=== PATIENT | male | born 1945 | race Caucasian/White ===

== ENCOUNTER 2019-05-06 10:57 | Inpatient (IN) | payer MEDICAID, MEDICARE ==
[~2019-05-06] VITALS: Ht 167.6 cm; Wt 54.3 kg
--- NOTE | 2019-05-06 11:16 | NUR ---
PT WALKED BACK FROM LOBBY TO ROOM AT THIS TIME.
[2019-05-06 11:54] LABS: BASOPHILS # (AUTO) 0.02 x10^3/uL (0-0.1); BASOPHILS % (AUTO) 0 % (0-1); EOSINOPHILS # (AUTO) 0.14 x10^3/uL (0-0.4); EOSINOPHILS % (AUTO) 2 % (1-7); LYMPHOCYTES # (AUTO) 0.45 x10^3/uL (1-3.4); LYMPHOCYTES % (AUTO) 5 % (22-44); MD NO; MEAN CORPUSCULAR HEMOGLOBIN 28.5 pg (27.5-34.5); MEAN CORPUSCULAR HGB CONC 32.6 g/dL (33.2-36.2); MEAN CORPUSCULAR VOLUME 87.4 fL (81-97); MEAN PLATELET VOLUME 7.9 fL (7.4-10.4); MONOCYTES % (AUTO) 7 % (2-9); NEUTROPHILS % (AUTO) 87 % (42-75); PLATELET COUNT 251 x10^3/uL (130-400); RED BLOOD COUNT 4.98 x10^6/uL (4.38-5.82); RED CELL DISTRIBUTION WIDTH 16.9 % (9.4-14.8)
[2019-05-06] MEDS ORDERED: METO-93 PO (11:58)
[2019-05-06] MEDS ORDERED: AMLO10TA8 PO (11:59)
[2019-05-06] MEDS ORDERED: ASPI1TAB59 PO (12:00)
[2019-05-06] MEDS ORDERED: SIMV5TAB14 PO (12:01)
[2019-05-06] MEDS ORDERED: TAMS-11 PO (12:01)
[2019-05-06 12:02] LABS: ALANINE AMINOTRANSFERASE 44 U/L (12-78); ALBUMIN 3.2 g/dL (3.4-5.0); ANION GAP 6 mmol/L (5-15); CHLORIDE 103 mmol/L (98-107); CREATININE 0.86 mg/dL (0.7-1.3)
[2019-05-06 12:06] LABS: ALKALINE PHOSPHATASE 78 U/L (45-117); BILIRUBIN,TOTAL 0.3 mg/dL (0.2-1.0); TOTAL PROTEIN 6.7 g/dL (6.4-8.2); TROPONIN I < 0.015 ng/mL (0.000-0.045)
--- NOTE | 2019-05-06 12:55 | NUR ---
REPORT RECEIVED FROM ALAN LANDEROS. PT SEEN AND EXAMINED BY SHIVAM ANDRADE, PT REPORTS PROGRESSIVE COUGH AND SOB FOR MONTHS. PER SHIVAM ANDRADE, PT HAS SYMPTOMS CONSISTENT WITH CHF EXACERBATION AND IS NOT SUSPICIOUS FOR COVID19. PT ON ALL MONITORS, RESPS EVEN AND UNLABORED, NSR ON JANITORIAL ASSISTANT WITH NO ECTOPY. PT TO RECEIVE LASIX.
[2019-05-06] MEDS ORDERED: FUROSEMIDE 40 MG/4 ML ONE (13:00)
[2019-05-06] MEDS ORDERED: FUROSEMIDE 40 MG/4 ML IV ONE (13:00)
--- NOTE | 2019-05-06 14:27 | NUR ---
PT AMBULATED WITH RN CONTINUOUS PULSE OX READING, SPO2 86% ON ROOM AIR WITH AMBULATION. EDMD LUPE NOTIFIED. PT REATTACHED TO ALL MONITORS, URINAL EMPTIED, PT HAS VOIDED 700ML. PT IS NSR ON SCRUB TECH WITH NO ECTOPY. PT TO BE ADMITTED, PT AGREEABLE TO POC.
--- NOTE | 2019-05-06 15:11 | NUR ---
report given to ALAN Begum, pt to be admitted. awaiting admit orders and bed assignment at this [facility].
[2019-05-06] MEDS ORDERED: ONDANSETRON 2MG/ML, 2ML IVPush PRN (15:30)
[2019-05-06 16:10] LABS: TROPONIN I < 0.015 ng/mL (0.000-0.045)
--- NOTE | 2019-05-06 16:52 | NUR ---
Pt transfered from ED to floor on [facility].
[2019-05-06 17:13] VITALS: BP 156/88
[2019-05-06] MEDS: ACETAMINOPHEN 325 MG TABLET PO PRN (17:47)
[2019-05-06] MEDS: HEPARIN 5,000 UNITS/ML, 1ML SQ SCH (17:47)
[2019-05-06 19:02] VITALS: BP 140/71
[2019-05-06] MEDS: SIMVASTATIN 5 MG TABLET PO SCH (20:15)
[2019-05-06] MEDS: METOPROLOL SUCCINATE 50 MG TAB.ER.24H PO SCH (20:15)
[2019-05-06] MEDS: TAMSULOSIN 0.4 MG CAP.ER.24H PO SCH (20:16)
[2019-05-06] MEDS: FUROSEMIDE 20 MG/2 ML IV SCH (20:16)
[2019-05-06 22:00] LABS: TROPONIN I < 0.015 ng/mL (0.000-0.045)
[2019-05-07 00:38] VITALS: BP 148/70
[2019-05-07] MEDS: HEPARIN 5,000 UNITS/ML, 1ML SQ SCH ×3 (02:14→16:53)
[2019-05-07 05:28] LABS: BASOPHILS # (AUTO) 0.04 x10^3/uL (0-0.1); BASOPHILS % (AUTO) 1 % (0-1); EOSINOPHILS # (AUTO) 0.17 x10^3/uL (0-0.4); EOSINOPHILS % (AUTO) 3 % (1-7); LYMPHOCYTES # (AUTO) 0.37 x10^3/uL (1-3.4); LYMPHOCYTES % (AUTO) 6 % (22-44); MD NO; MEAN CORPUSCULAR HEMOGLOBIN 28.6 pg (27.5-34.5); MEAN CORPUSCULAR HGB CONC 32.7 g/dL (33.2-36.2); MEAN CORPUSCULAR VOLUME 87.3 fL (81-97); MEAN PLATELET VOLUME 7.7 fL (7.4-10.4); MONOCYTES # (AUTO) 0.63 x10^3/uL (0.2-0.8); MONOCYTES % (AUTO) 10 % (2-9); NEUTROPHILS # (AUTO) 4.92 x10^3/uL (1.8-6.8); NEUTROPHILS % (AUTO) 80 % (42-75); PLATELET COUNT 214 x10^3/uL (130-400); RED BLOOD COUNT 4.59 x10^6/uL (4.38-5.82); RED CELL DISTRIBUTION WIDTH 16.4 % (9.4-14.8)
[2019-05-07 05:36] LABS: ALBUMIN 2.9 g/dL (3.4-5.0); ANION GAP 4 mmol/L (5-15); CALCIUM 8.3 mg/dL (8.5-10.1); CHLORIDE 98 mmol/L (98-107)
[2019-05-07 05:40] LABS: ALANINE AMINOTRANSFERASE 34 U/L (12-78); ALKALINE PHOSPHATASE 67 U/L (45-117); BILIRUBIN,TOTAL 0.7 mg/dL (0.2-1.0); CREATININE 0.67 mg/dL (0.7-1.3)
[2019-05-07] MEDS: FUROSEMIDE 20 MG/2 ML IV SCH ×2 (08:03→16:53)
[2019-05-07 08:19] VITALS: BP 173/79
[2019-05-07 09:26] LABS: C-REACTIVE PROTEIN, QUANT 0.69 mg/dL (0.02-0.49)
[2019-05-07 09:34] LABS: FREE T4 (FREE THYROXINE) 1.01 ng/dL (0.76-1.46)
[2019-05-07 09:42] LABS: HCT (SEDRATE) 40.1 % (39.2-51.8)
[2019-05-07 13:46] VITALS: BP 126/82
[2019-05-07 19:05] VITALS: BP 138/74
[2019-05-07] MEDS: TAMSULOSIN 0.4 MG CAP.ER.24H PO SCH (21:45)
[2019-05-07] MEDS: SIMVASTATIN 5 MG TABLET PO SCH (21:46)
[2019-05-07] MEDS: METOPROLOL SUCCINATE 50 MG TAB.ER.24H PO SCH (21:46)
[2019-05-08] MEDS: HEPARIN 5,000 UNITS/ML, 1ML SQ SCH ×3 (01:59→17:41)
[2019-05-08 02:00] VITALS: BP 161/72
[2019-05-08 05:22] LABS: ALBUMIN 2.8 g/dL (3.4-5.0); ANION GAP 4 mmol/L (5-15); CALCIUM 8.4 mg/dL (8.5-10.1); CHLORIDE 99 mmol/L (98-107)
[2019-05-08 05:23] LABS: BASOPHILS # (AUTO) 0.03 x10^3/uL (0-0.1); BASOPHILS % (AUTO) 0 % (0-1); EOSINOPHILS % (AUTO) 3 % (1-7); LYMPHOCYTES # (AUTO) 0.48 x10^3/uL (1-3.4); LYMPHOCYTES % (AUTO) 8 % (22-44); MD NO; MEAN CORPUSCULAR HEMOGLOBIN 28.6 pg (27.5-34.5); MEAN CORPUSCULAR HGB CONC 32.8 g/dL (33.2-36.2); MEAN CORPUSCULAR VOLUME 87.2 fL (81-97); MEAN PLATELET VOLUME 8.2 fL (7.4-10.4); MONOCYTES # (AUTO) 0.75 x10^3/uL (0.2-0.8); MONOCYTES % (AUTO) 12 % (2-9); NEUTROPHILS # (AUTO) 4.91 x10^3/uL (1.8-6.8); NEUTROPHILS % (AUTO) 77 % (42-75); PLATELET COUNT 227 x10^3/uL (130-400); RED BLOOD COUNT 4.64 x10^6/uL (4.38-5.82); RED CELL DISTRIBUTION WIDTH 16.8 % (9.4-14.8)
[2019-05-08] MEDS: FUROSEMIDE 20 MG/2 ML IV SCH ×2 (07:43→16:41)
[2019-05-08] MEDS: LISINOPRIL 10 MG TABLET PO SCH (07:43)
[2019-05-08 08:32] VITALS: BP 103/49
[2019-05-08 13:32] VITALS: BP 131/71
[2019-05-08] MEDS: ACETAMINOPHEN 325 MG TABLET PO PRN (16:40)
[2019-05-08] MEDS: GUAIFENESIN ER 600 MG TABLET PO SCH (16:41)
[2019-05-08] MEDS ORDERED: POTASSIUM CHLORIDE 20 MEQ in SODIUM CHLORIDE 0.9% 250 ML IV ONE (17:30)
[2019-05-08 20:52] VITALS: BP 128/69
[2019-05-08] MEDS: SIMVASTATIN 5 MG TABLET PO SCH (21:03)
[2019-05-08] MEDS: TAMSULOSIN 0.4 MG CAP.ER.24H PO SCH (21:03)
[2019-05-08] MEDS: METOPROLOL SUCCINATE 50 MG TAB.ER.24H PO SCH (21:04)
[2019-05-09 01:58] VITALS: BP 124/70
[2019-05-09] MEDS: HEPARIN 5,000 UNITS/ML, 1ML SQ SCH ×3 (02:06→17:46)
[2019-05-09 08:41] VITALS: BP 138/73
[2019-05-09] MEDS: LISINOPRIL 10 MG TABLET PO SCH (09:02)
[2019-05-09] MEDS: ACETAMINOPHEN 325 MG TABLET PO PRN ×3 (09:02→20:17)
[2019-05-09] MEDS: FUROSEMIDE 20 MG/2 ML IV SCH ×2 (09:03→17:00)
[2019-05-09] MEDS: GUAIFENESIN ER 600 MG TABLET PO SCH ×2 (09:04→20:16)
[2019-05-09 15:20] VITALS: BP 113/59
[2019-05-09] MEDS ORDERED: MAGNESIUM SULFATE PMX 2GM/50ML 50 ML IV ONE (17:00)
[2019-05-09] MEDS ORDERED: MAGNESIUM SULFATE IV ONE (17:30)
[2019-05-09] MEDS ORDERED: POTASSIUM CHLORIDE IV ONE (17:30)
[2019-05-09] MEDS ORDERED: SODIUM CHLORIDE 0.9% IV ONE (17:30)
[2019-05-09 19:36] VITALS: BP 105/62
[2019-05-09] MEDS: SIMVASTATIN 5 MG TABLET PO SCH (20:16)
[2019-05-09] MEDS: METOPROLOL SUCCINATE 50 MG TAB.ER.24H PO SCH (20:17)
[2019-05-09] MEDS: TAMSULOSIN 0.4 MG CAP.ER.24H PO SCH (20:17)
[2019-05-10] MEDS: HEPARIN 5,000 UNITS/ML, 1ML SQ SCH ×3 (01:07→17:39)
[2019-05-10 01:10] VITALS: BP 126/69
[2019-05-10 04:59] LABS: BASOPHILS # (AUTO) 0.03 x10^3/uL (0-0.1); BASOPHILS % (AUTO) 1 % (0-1); EOSINOPHILS # (AUTO) 0.22 x10^3/uL (0-0.4); EOSINOPHILS % (AUTO) 5 % (1-7); LYMPHOCYTES # (AUTO) 0.45 x10^3/uL (1-3.4); LYMPHOCYTES % (AUTO) 9 % (22-44); MD NO; MEAN CORPUSCULAR HEMOGLOBIN 28.1 pg (27.5-34.5); MEAN CORPUSCULAR HGB CONC 31.6 g/dL (33.2-36.2); MONOCYTES # (AUTO) 0.71 x10^3/uL (0.2-0.8); MONOCYTES % (AUTO) 14 % (2-9); NEUTROPHILS # (AUTO) 3.55 x10^3/uL (1.8-6.8); NEUTROPHILS % (AUTO) 71 % (42-75); PLATELET COUNT 187 x10^3/uL (130-400); RED BLOOD COUNT 4.66 x10^6/uL (4.38-5.82); RED CELL DISTRIBUTION WIDTH 16.4 % (9.4-14.8)
[2019-05-10 05:11] LABS: CHLORIDE 98 mmol/L (98-107)
[2019-05-10 05:15] LABS: ALBUMIN 2.8 g/dL (3.4-5.0); ANION GAP 6 mmol/L (5-15); CALCIUM 8.4 mg/dL (8.5-10.1); CREATININE 0.49 mg/dL (0.7-1.3)
[2019-05-10 06:49] VITALS: BP 137/68
[2019-05-10] MEDS: FUROSEMIDE 20 MG/2 ML IV SCH ×2 (09:23→17:39)
[2019-05-10] MEDS: LISINOPRIL 10 MG TABLET PO SCH (09:23)
[2019-05-10] MEDS: GUAIFENESIN ER 600 MG TABLET PO SCH ×2 (09:23→20:41)
[2019-05-10] MEDS: ACETAMINOPHEN 325 MG TABLET PO PRN ×2 (09:31→17:53)
[2019-05-10 12:55] VITALS: BP 134/71
[2019-05-10] MEDS ORDERED: POTASSIUM CHLORIDE 20 MEQ TAB.ER.PRT PO SCH (17:00)
[2019-05-10 19:41] VITALS: BP 109/57
[2019-05-10] MEDS: SIMVASTATIN 5 MG TABLET PO SCH (20:41)
[2019-05-10] MEDS: METOPROLOL SUCCINATE 50 MG TAB.ER.24H PO SCH (20:41)
[2019-05-10] MEDS: TAMSULOSIN 0.4 MG CAP.ER.24H PO SCH (20:41)
[2019-05-11 00:45] VITALS: BP 134/71
[2019-05-11] MEDS: HEPARIN 5,000 UNITS/ML, 1ML SQ SCH ×3 (02:12→17:43)
[2019-05-11 06:16] LABS: CHLORIDE 96 mmol/L (98-107)
[2019-05-11 06:22] LABS: ALANINE AMINOTRANSFERASE 30 U/L (12-78); ALBUMIN 2.9 g/dL (3.4-5.0); ALKALINE PHOSPHATASE 52 U/L (45-117); ANION GAP 3 mmol/L (5-15); BILIRUBIN,TOTAL 0.6 mg/dL (0.2-1.0); CALCIUM 8.6 mg/dL (8.5-10.1); CREATININE 0.53 mg/dL (0.7-1.3)
[2019-05-11 07:05] VITALS: BP 131/64
[2019-05-11] MEDS: POTASSIUM CHLORIDE 20 MEQ TAB.ER.PRT PO SCH ×2 (09:00→09:03)
[2019-05-11] MEDS: LISINOPRIL 10 MG TABLET PO SCH (09:03)
[2019-05-11] MEDS: GUAIFENESIN ER 600 MG TABLET PO SCH ×2 (09:03→19:49)
[2019-05-11] MEDS: ACETAMINOPHEN 325 MG TABLET PO PRN ×2 (09:11→17:52)
--- NOTE | 2019-05-11 11:32 | NUR ---
Rec return to previous living situation. Rec regular/thin liquid diet and GI consult if concerns persist. Addendum: 05/11/19 at 1133 by Angie GATES Amended: Links added.
[2019-05-11 14:11] VITALS: BP 121/67
[2019-05-11] MEDS: FUROSEMIDE 20 MG TABLET PO SCH (17:43)
[2019-05-11 19:40] VITALS: BP 146/75
[2019-05-11] MEDS: SIMVASTATIN 5 MG TABLET PO SCH (19:49)
[2019-05-11] MEDS: TAMSULOSIN 0.4 MG CAP.ER.24H PO SCH (19:49)
[2019-05-11] MEDS: METOPROLOL SUCCINATE 50 MG TAB.ER.24H PO SCH (19:50)
[2019-05-12 02:05] VITALS: BP 132/75
[2019-05-12] MEDS: HEPARIN 5,000 UNITS/ML, 1ML SQ SCH ×2 (02:07→09:49)
[2019-05-12 05:17] LABS: ALBUMIN 2.6 g/dL (3.4-5.0); ANION GAP 2 mmol/L (5-15); CALCIUM 8.5 mg/dL (8.5-10.1); CHLORIDE 96 mmol/L (98-107)
[2019-05-12 05:20] LABS: ALANINE AMINOTRANSFERASE 31 U/L (12-78); ALKALINE PHOSPHATASE 52 U/L (45-117); BILIRUBIN,TOTAL 0.4 mg/dL (0.2-1.0); CREATININE 0.65 mg/dL (0.7-1.3); TOTAL PROTEIN 5.7 g/dL (6.4-8.2)
[2019-05-12] MEDS: LISINOPRIL 10 MG TABLET PO SCH (08:38)
[2019-05-12] MEDS: FUROSEMIDE 20 MG TABLET PO SCH ×2 (08:38→17:39)
[2019-05-12] MEDS: POTASSIUM CHLORIDE 10 MEQ TABLET.ER PO SCH (08:38)
[2019-05-12] MEDS: GUAIFENESIN ER 600 MG TABLET PO SCH ×2 (08:38→20:54)
[2019-05-12 08:43] VITALS: BP 133/64
[2019-05-12] MEDS: ACETAMINOPHEN 325 MG TABLET PO PRN ×2 (09:48→20:54)
[2019-05-12] MEDS ORDERED: ENOXAPARIN 40 MG/0.4 ML SQ SCH (13:00)
[2019-05-12 13:12] VITALS: BP 139/75
[2019-05-12 15:08] VITALS: BP 158/73
[2019-05-12] MEDS: ENOXAPARIN 40 MG/0.4 ML SQ SCH (17:39)
[2019-05-12 19:50] VITALS: BP 138/67
[2019-05-12] MEDS: TAMSULOSIN 0.4 MG CAP.ER.24H PO SCH (20:54)
[2019-05-12] MEDS: SIMVASTATIN 5 MG TABLET PO SCH (20:55)
[2019-05-12] MEDS: METOPROLOL SUCCINATE 50 MG TAB.ER.24H PO SCH (20:55)
[2019-05-13 02:39] VITALS: BP 106/55
[2019-05-13 07:11] VITALS: BP 145/71
[2019-05-13] MEDS: FUROSEMIDE 20 MG TABLET PO SCH ×2 (07:52→17:25)
[2019-05-13] MEDS: POTASSIUM CHLORIDE 10 MEQ TABLET.ER PO SCH (07:52)
[2019-05-13] MEDS: GUAIFENESIN ER 600 MG TABLET PO SCH ×2 (07:52→20:45)
[2019-05-13] MEDS: LISINOPRIL 10 MG TABLET PO SCH (07:52)
[2019-05-13] MEDS: ACETAMINOPHEN 325 MG TABLET PO PRN ×2 (11:06→20:44)
[2019-05-13 12:50] VITALS: BP 168/71
[2019-05-13] MEDS: ENOXAPARIN 40 MG/0.4 ML SQ SCH (17:25)
[2019-05-13 19:05] VITALS: BP 152/66
[2019-05-13] MEDS: SIMVASTATIN 5 MG TABLET PO SCH (20:45)
[2019-05-13] MEDS: TAMSULOSIN 0.4 MG CAP.ER.24H PO SCH (20:45)
[2019-05-13] MEDS: METOPROLOL SUCCINATE 50 MG TAB.ER.24H PO SCH (20:45)
[2019-05-14 02:28] VITALS: BP 122/72
[2019-05-14 06:05] LABS: ANION GAP 3 mmol/L (5-15); CALCIUM 8.7 mg/dL (8.5-10.1); CHLORIDE 93 mmol/L (98-107)
[2019-05-14 06:09] LABS: ALANINE AMINOTRANSFERASE 47 U/L (12-78); ALKALINE PHOSPHATASE 51 U/L (45-117); BILIRUBIN,TOTAL 0.4 mg/dL (0.2-1.0); CREATININE 0.59 mg/dL (0.7-1.3); TOTAL PROTEIN 6.2 g/dL (6.4-8.2)
[2019-05-14 06:52] VITALS: BP 123/64
[2019-05-14] MEDS: POTASSIUM CHLORIDE 10 MEQ TABLET.ER PO SCH ×2 (09:00→10:05)
[2019-05-14] MEDS: FUROSEMIDE 20 MG TABLET PO SCH ×2 (09:00→10:05)
[2019-05-14] MEDS: LISINOPRIL 10 MG TABLET PO SCH (10:05)
[2019-05-14] MEDS: GUAIFENESIN ER 600 MG TABLET PO SCH ×2 (10:05→20:41)
[2019-05-14] MEDS: ACETAMINOPHEN 325 MG TABLET PO PRN ×3 (10:08→20:39)
[2019-05-14 13:47] VITALS: BP 80/41
[2019-05-14 14:02] VITALS: BP 94/55
[2019-05-14] MEDS: ENOXAPARIN 40 MG/0.4 ML SQ SCH (18:18)
[2019-05-14 19:14] VITALS: BP 126/67
[2019-05-14] MEDS: TAMSULOSIN 0.4 MG CAP.ER.24H PO SCH (20:41)
[2019-05-14] MEDS: METOPROLOL SUCCINATE 50 MG TAB.ER.24H PO SCH (20:41)
[2019-05-14] MEDS: SIMVASTATIN 10 MG TABLET PO SCH (20:43)
[2019-05-14] MEDS: OMEPRAZOLE 20 MG CAPSULE.DR PO SCH (20:56)
[2019-05-14] MEDS ORDERED: CALCIUM CARBONATE 500 MG TAB.CHEW PO PRN (21:00)
[2019-05-15 01:06] VITALS: BP 128/70
[2019-05-15] MEDS: ACETAMINOPHEN 325 MG TABLET PO PRN ×2 (06:08→19:32)
[2019-05-15 06:54] LABS: CHLORIDE 96 mmol/L (98-107)
[2019-05-15 06:57] VITALS: BP 154/68
[2019-05-15 07:03] LABS: ALANINE AMINOTRANSFERASE 50 U/L (12-78); ALBUMIN 3.2 g/dL (3.4-5.0); ALKALINE PHOSPHATASE 52 U/L (45-117); ANION GAP 4 mmol/L (5-15); BILIRUBIN,TOTAL 0.4 mg/dL (0.2-1.0); CREATININE 0.61 mg/dL (0.7-1.3); TOTAL PROTEIN 6.5 g/dL (6.4-8.2)
[2019-05-15] MEDS: FUROSEMIDE 20 MG TABLET PO SCH (09:25)
[2019-05-15] MEDS: GUAIFENESIN ER 600 MG TABLET PO SCH ×2 (09:25→19:32)
[2019-05-15] MEDS: LISINOPRIL 10 MG TABLET PO SCH (09:25)
[2019-05-15 13:42] VITALS: BP 131/69
[2019-05-15] MEDS: ENOXAPARIN 40 MG/0.4 ML SQ SCH (18:02)
[2019-05-15 18:30] VITALS: BP 111/58
[2019-05-15] MEDS: SIMVASTATIN 10 MG TABLET PO SCH (19:33)
[2019-05-15] MEDS: TAMSULOSIN 0.4 MG CAP.ER.24H PO SCH (19:33)
[2019-05-15] MEDS: METOPROLOL SUCCINATE 50 MG TAB.ER.24H PO SCH (19:33)
[2019-05-15] MEDS: OMEPRAZOLE 20 MG CAPSULE.DR PO SCH (19:33)
[2019-05-16 00:33] VITALS: BP 172/66
[2019-05-16 01:32] VITALS: BP 136/70
[2019-05-16 07:29] VITALS: BP 174/75
[2019-05-16] MEDS: POTASSIUM CHLORIDE 10 MEQ TABLET.ER PO SCH (08:12)
[2019-05-16] MEDS: GUAIFENESIN ER 600 MG TABLET PO SCH ×2 (08:12→19:44)
[2019-05-16] MEDS: ACETAMINOPHEN 325 MG TABLET PO PRN ×2 (08:12→19:42)
[2019-05-16] MEDS: LISINOPRIL 10 MG TABLET PO SCH ×3 (08:12→19:43)
[2019-05-16] MEDS: FUROSEMIDE 20 MG TABLET PO SCH (10:39)
[2019-05-16 13:00] VITALS: BP 145/73
[2019-05-16] MEDS: ENOXAPARIN 40 MG/0.4 ML SQ SCH (16:53)
[2019-05-16] MEDS: SIMVASTATIN 10 MG TABLET PO SCH (19:43)
[2019-05-16] MEDS: TAMSULOSIN 0.4 MG CAP.ER.24H PO SCH (19:43)
[2019-05-16] MEDS: OMEPRAZOLE 20 MG CAPSULE.DR PO SCH (19:43)
[2019-05-16] MEDS: METOPROLOL SUCCINATE 50 MG TAB.ER.24H PO SCH (19:44)
[2019-05-16 20:46] VITALS: BP 132/69
[2019-05-17 00:08] VITALS: BP 121/74
[2019-05-17 07:16] VITALS: BP 94/56
[2019-05-17 09:38] VITALS: BP 93/48
[2019-05-17] MEDS: GUAIFENESIN ER 600 MG TABLET PO SCH ×2 (09:40→20:18)
[2019-05-17] MEDS: LISINOPRIL 10 MG TABLET PO SCH ×2 (09:40→20:19)
[2019-05-17] MEDS: FUROSEMIDE 20 MG TABLET PO SCH (09:40)
[2019-05-17] MEDS: ACETAMINOPHEN 325 MG TABLET PO PRN ×2 (09:42→19:32)
[2019-05-17 12:23] VITALS: BP 124/64
[2019-05-17 19:27] VITALS: BP 150/72
[2019-05-17] MEDS: OMEPRAZOLE 20 MG CAPSULE.DR PO SCH (20:18)
[2019-05-17] MEDS: TAMSULOSIN 0.4 MG CAP.ER.24H PO SCH (20:18)
[2019-05-17] MEDS: SIMVASTATIN 10 MG TABLET PO SCH (20:18)
[2019-05-17] MEDS: ENOXAPARIN 40 MG/0.4 ML SQ SCH (20:19)
[2019-05-17] MEDS: METOPROLOL SUCCINATE 50 MG TAB.ER.24H PO SCH (20:19)
[2019-05-18 01:47] VITALS: BP 152/75
[2019-05-18 06:33] LABS: ANION GAP 8 mmol/L (5-15); CALCIUM 8.8 mg/dL (8.5-10.1); CHLORIDE 94 mmol/L (98-107)
[2019-05-18 06:34] LABS: CREATININE 0.62 mg/dL (0.7-1.3)
[2019-05-18 07:02] VITALS: BP 117/66
[2019-05-18] MEDS: POTASSIUM CHLORIDE 10 MEQ TABLET.ER PO SCH (08:27)
[2019-05-18] MEDS: GUAIFENESIN ER 600 MG TABLET PO SCH ×2 (08:27→20:05)
[2019-05-18] MEDS: LISINOPRIL 10 MG TABLET PO SCH ×2 (08:27→20:07)
[2019-05-18] MEDS: FUROSEMIDE 20 MG TABLET PO SCH (08:27)
[2019-05-18] MEDS: ACETAMINOPHEN 325 MG TABLET PO PRN ×2 (08:36→20:07)
[2019-05-18 12:12] VITALS: BP 145/68
[2019-05-18 18:59] VITALS: BP 130/61
[2019-05-18 19:58] VITALS: BP 138/73
[2019-05-18] MEDS: METOPROLOL SUCCINATE 50 MG TAB.ER.24H PO SCH (20:05)
[2019-05-18] MEDS: OMEPRAZOLE 20 MG CAPSULE.DR PO SCH (20:05)
[2019-05-18] MEDS: TAMSULOSIN 0.4 MG CAP.ER.24H PO SCH (20:05)
[2019-05-18] MEDS: ENOXAPARIN 40 MG/0.4 ML SQ SCH (20:05)
[2019-05-18] MEDS: SIMVASTATIN 10 MG TABLET PO SCH (20:06)
[2019-05-19 00:30] VITALS: BP 137/61
[2019-05-19 07:24] VITALS: BP 110/60
[2019-05-19] MEDS: LISINOPRIL 10 MG TABLET PO SCH ×2 (09:34→20:48)
[2019-05-19] MEDS: GUAIFENESIN ER 600 MG TABLET PO SCH ×2 (09:34→20:49)
[2019-05-19] MEDS: FUROSEMIDE 20 MG TABLET PO SCH (09:35)
[2019-05-19] MEDS: ACETAMINOPHEN 325 MG TABLET PO PRN ×2 (09:38→20:53)
[2019-05-19 14:38] VITALS: BP 95/53
[2019-05-19 19:07] VITALS: BP 146/72
[2019-05-19] MEDS: ENOXAPARIN 40 MG/0.4 ML SQ SCH (20:48)
[2019-05-19] MEDS: OMEPRAZOLE 20 MG CAPSULE.DR PO SCH (20:48)
[2019-05-19] MEDS: METOPROLOL SUCCINATE 50 MG TAB.ER.24H PO SCH (20:48)
[2019-05-19] MEDS: SIMVASTATIN 10 MG TABLET PO SCH (20:48)
[2019-05-19] MEDS: TAMSULOSIN 0.4 MG CAP.ER.24H PO SCH (20:48)
[2019-05-20 01:56] VITALS: BP 120/64
[2019-05-20 08:10] VITALS: BP 98/60
[2019-05-20] MEDS: LISINOPRIL 20 MG TABLET PO SCH ×2 (09:00→09:25)
[2019-05-20] MEDS: FUROSEMIDE 20 MG TABLET PO SCH (09:24)
[2019-05-20] MEDS: POTASSIUM CHLORIDE 10 MEQ TABLET.ER PO SCH (09:25)
[2019-05-20] MEDS: GUAIFENESIN 200 MG TABLET PO SCH ×3 (11:11→20:50)
[2019-05-20] MEDS: ACETAMINOPHEN 325 MG TABLET PO PRN ×2 (11:12→19:09)
[2019-05-20 12:54] VITALS: BP 131/69
[2019-05-20 19:57] VITALS: BP 148/74
[2019-05-20] MEDS: METOPROLOL SUCCINATE 50 MG TAB.ER.24H PO SCH (20:50)
[2019-05-20] MEDS: TAMSULOSIN 0.4 MG CAP.ER.24H PO SCH (20:51)
[2019-05-20] MEDS: ENOXAPARIN 40 MG/0.4 ML SQ SCH (20:51)
[2019-05-20] MEDS: OMEPRAZOLE 20 MG CAPSULE.DR PO SCH (20:51)
[2019-05-20] MEDS: SIMVASTATIN 10 MG TABLET PO SCH (20:51)
[2019-05-21 00:06] VITALS: BP 155/70
[2019-05-21] MEDS: ACETAMINOPHEN 325 MG TABLET PO PRN ×2 (06:52→20:28)
[2019-05-21] MEDS: GUAIFENESIN 200 MG TABLET PO SCH ×4 (06:52→20:27)
[2019-05-21 07:50] VITALS: BP 127/71
[2019-05-21] MEDS: LISINOPRIL 20 MG TABLET PO SCH (08:30)
[2019-05-21] MEDS: FUROSEMIDE 20 MG TABLET PO SCH (08:30)
[2019-05-21 13:08] VITALS: BP 90/47
[2019-05-21 13:23] VITALS: BP 95/55
[2019-05-21 19:59] VITALS: BP 145/75
[2019-05-21 20:26] VITALS: BP 156/74
[2019-05-21] MEDS: TAMSULOSIN 0.4 MG CAP.ER.24H PO SCH (20:27)
[2019-05-21] MEDS: OMEPRAZOLE 20 MG CAPSULE.DR PO SCH (20:27)
[2019-05-21] MEDS: METOPROLOL SUCCINATE 50 MG TAB.ER.24H PO SCH (20:27)
[2019-05-21] MEDS: SIMVASTATIN 10 MG TABLET PO SCH (20:28)
[2019-05-21] MEDS: ENOXAPARIN 40 MG/0.4 ML SQ SCH (20:28)
[2019-05-22] VITALS (7 sets, daily range): BP systolic 103–177; BP diastolic 59–82
[2019-05-22] MEDS: GUAIFENESIN 200 MG TABLET PO SCH ×4 (06:02→20:04)
[2019-05-22] MEDS: FUROSEMIDE 20 MG TABLET PO SCH (08:25)
[2019-05-22] MEDS: ACETAMINOPHEN 325 MG TABLET PO PRN ×2 (08:25→20:04)
[2019-05-22] MEDS: LISINOPRIL 20 MG TABLET PO SCH (08:25)
[2019-05-22] MEDS: POTASSIUM CHLORIDE 10 MEQ TABLET.ER PO SCH (08:25)
[2019-05-22] MEDS: TAMSULOSIN 0.4 MG CAP.ER.24H PO SCH (20:04)
[2019-05-22] MEDS: OMEPRAZOLE 20 MG CAPSULE.DR PO SCH (20:04)
[2019-05-22] MEDS: ENOXAPARIN 40 MG/0.4 ML SQ SCH ×2 (20:05→20:11)
[2019-05-22] MEDS: SIMVASTATIN 10 MG TABLET PO SCH (20:05)
[2019-05-22] MEDS: METOPROLOL SUCCINATE 50 MG TAB.ER.24H PO SCH (20:10)
[2019-05-23 00:25] VITALS: BP 158/70
[2019-05-23 05:52] LABS: ANION GAP 6 mmol/L (5-15); CALCIUM 8.7 mg/dL (8.5-10.1); CHLORIDE 97 mmol/L (98-107); CREATININE 0.57 mg/dL (0.7-1.3)
[2019-05-23] MEDS: GUAIFENESIN 200 MG TABLET PO SCH ×4 (06:04→20:46)
[2019-05-23] MEDS: ACETAMINOPHEN 325 MG TABLET PO PRN ×2 (06:07→19:22)
[2019-05-23 06:58] VITALS: BP 112/66
[2019-05-23] MEDS: LISINOPRIL 20 MG TABLET PO SCH (08:30)
[2019-05-23] MEDS: FUROSEMIDE 20 MG TABLET PO SCH (08:31)
[2019-05-23 13:43] VITALS: BP 132/69
[2019-05-23 20:00] VITALS: BP_SYST 150; BP_SYST 164; BP_DIAS 74; BP_DIAS 76
[2019-05-23] MEDS: OMEPRAZOLE 20 MG CAPSULE.DR PO SCH (20:46)
[2019-05-23] MEDS: ENOXAPARIN 40 MG/0.4 ML SQ SCH (20:46)
[2019-05-23] MEDS: METOPROLOL SUCCINATE 50 MG TAB.ER.24H PO SCH (20:46)
[2019-05-23] MEDS: TAMSULOSIN 0.4 MG CAP.ER.24H PO SCH (20:46)
[2019-05-23] MEDS: SIMVASTATIN 10 MG TABLET PO SCH (20:47)
[2019-05-24 01:16] VITALS: BP 145/69
[2019-05-24] MEDS: ACETAMINOPHEN 325 MG TABLET PO PRN ×4 (01:26→20:10)
[2019-05-24] MEDS: GUAIFENESIN 200 MG TABLET PO SCH ×4 (05:47→20:09)
[2019-05-24] MEDS: FUROSEMIDE 20 MG TABLET PO SCH (07:41)
[2019-05-24] MEDS: LISINOPRIL 20 MG TABLET PO SCH (07:41)
[2019-05-24 08:14] VITALS: BP 178/75
[2019-05-24] MEDS: AMLODIPINE 10 MG TAB PO SCH (10:01)
[2019-05-24 15:18] VITALS: BP 161/68
[2019-05-24] MEDS: TAMSULOSIN 0.4 MG CAP.ER.24H PO SCH (20:09)
[2019-05-24] MEDS: ENOXAPARIN 40 MG/0.4 ML SQ SCH (20:09)
[2019-05-24] MEDS: OMEPRAZOLE 20 MG CAPSULE.DR PO SCH (20:09)
[2019-05-24] MEDS: METOPROLOL SUCCINATE 50 MG TAB.ER.24H PO SCH (20:09)
[2019-05-24] MEDS: SIMVASTATIN 10 MG TABLET PO SCH (20:09)
[2019-05-24 20:49] VITALS: BP 153/78
[2019-05-25 01:44] VITALS: BP 136/78
[2019-05-25] MEDS: GUAIFENESIN 200 MG TABLET PO SCH ×4 (05:56→20:03)
[2019-05-25] MEDS: ACETAMINOPHEN 325 MG TABLET PO PRN ×3 (05:56→18:03)
[2019-05-25 06:55] VITALS: BP 108/61
[2019-05-25] MEDS: FUROSEMIDE 20 MG TABLET PO SCH (08:46)
[2019-05-25] MEDS: LISINOPRIL 20 MG TABLET PO SCH (08:46)
[2019-05-25] MEDS: AMLODIPINE 10 MG TAB PO SCH (08:47)
[2019-05-25 13:53] VITALS: BP 94/50
[2019-05-25 19:58] VITALS: BP 130/68
[2019-05-25] MEDS: OMEPRAZOLE 20 MG CAPSULE.DR PO SCH (20:03)
[2019-05-25] MEDS: ENOXAPARIN 40 MG/0.4 ML SQ SCH (20:04)
[2019-05-25] MEDS: METOPROLOL SUCCINATE 50 MG TAB.ER.24H PO SCH (20:04)
[2019-05-25] MEDS: TAMSULOSIN 0.4 MG CAP.ER.24H PO SCH (20:04)
[2019-05-25] MEDS: SIMVASTATIN 10 MG TABLET PO SCH (20:04)
[2019-05-26 01:00] VITALS: BP 123/66
[2019-05-26] MEDS: ACETAMINOPHEN 325 MG TABLET PO PRN ×3 (06:08→18:23)
[2019-05-26] MEDS: GUAIFENESIN 200 MG TABLET PO SCH ×4 (06:08→20:15)
[2019-05-26 07:00] VITALS: BP 91/53
[2019-05-26 09:45] VITALS: BP 118/70
[2019-05-26] MEDS: FUROSEMIDE 20 MG TABLET PO SCH (09:48)
[2019-05-26] MEDS: LISINOPRIL 20 MG TABLET PO SCH (09:50)
[2019-05-26] MEDS: AMLODIPINE 10 MG TAB PO SCH (09:50)
[2019-05-26 12:15] VITALS: BP 121/67
[2019-05-26 19:40] VITALS: BP 111/62
[2019-05-26] MEDS: METOPROLOL SUCCINATE 50 MG TAB.ER.24H PO SCH (20:15)
[2019-05-26] MEDS: OMEPRAZOLE 20 MG CAPSULE.DR PO SCH (20:15)
[2019-05-26] MEDS: SIMVASTATIN 10 MG TABLET PO SCH (20:16)
[2019-05-26] MEDS: ENOXAPARIN 40 MG/0.4 ML SQ SCH (20:16)
[2019-05-26] MEDS: TAMSULOSIN 0.4 MG CAP.ER.24H PO SCH (20:16)
[2019-05-27 01:30] VITALS: BP 129/68
[2019-05-27] MEDS: GUAIFENESIN 200 MG TABLET PO SCH ×4 (06:07→20:46)
[2019-05-27] MEDS: ACETAMINOPHEN 325 MG TABLET PO PRN ×2 (06:08→20:46)
[2019-05-27 07:31] VITALS: BP 128/67
[2019-05-27] MEDS: FUROSEMIDE 20 MG TABLET PO SCH (09:17)
[2019-05-27] MEDS: AMLODIPINE 10 MG TAB PO SCH (09:17)
[2019-05-27] MEDS: LISINOPRIL 20 MG TABLET PO SCH (09:18)
[2019-05-27 15:43] VITALS: BP 115/57
[2019-05-27 18:54] VITALS: BP 116/67
[2019-05-27] MEDS: ENOXAPARIN 40 MG/0.4 ML SQ SCH (20:46)
[2019-05-27] MEDS: SIMVASTATIN 10 MG TABLET PO SCH (20:46)
[2019-05-27] MEDS: TAMSULOSIN 0.4 MG CAP.ER.24H PO SCH (20:46)
[2019-05-27] MEDS: OMEPRAZOLE 20 MG CAPSULE.DR PO SCH (20:47)
[2019-05-27] MEDS: METOPROLOL SUCCINATE 50 MG TAB.ER.24H PO SCH (20:47)
[2019-05-28 01:26] VITALS: BP 98/60
[2019-05-28 05:23] LABS: CREATININE 0.61 mg/dL (0.7-1.3)
[2019-05-28] MEDS: GUAIFENESIN 200 MG TABLET PO SCH ×4 (05:39→22:09)
[2019-05-28] MEDS: ACETAMINOPHEN 325 MG TABLET PO PRN ×2 (05:42→18:42)
[2019-05-28 08:40] VITALS: BP 106/62
[2019-05-28] MEDS: FUROSEMIDE 20 MG TABLET PO SCH (09:18)
[2019-05-28] MEDS: AMLODIPINE 10 MG TAB PO SCH (09:18)
[2019-05-28] MEDS: LISINOPRIL 20 MG TABLET PO SCH (09:19)
[2019-05-28 14:26] VITALS: BP 100/62
[2019-05-28 18:28] VITALS: BP 111/64
[2019-05-28] MEDS: TAMSULOSIN 0.4 MG CAP.ER.24H PO SCH (22:09)
[2019-05-28] MEDS: OMEPRAZOLE 20 MG CAPSULE.DR PO SCH (22:09)
[2019-05-28] MEDS: ENOXAPARIN 40 MG/0.4 ML SQ SCH (22:09)
[2019-05-28] MEDS: METOPROLOL SUCCINATE 50 MG TAB.ER.24H PO SCH (22:09)
[2019-05-28] MEDS: SIMVASTATIN 10 MG TABLET PO SCH (22:09)
[2019-05-29 00:31] VITALS: BP 105/63
[2019-05-29] MEDS: GUAIFENESIN 200 MG TABLET PO SCH ×4 (05:36→20:28)
[2019-05-29 07:01] VITALS: BP 139/65
[2019-05-29] MEDS: LISINOPRIL 20 MG TABLET PO SCH (08:10)
[2019-05-29] MEDS: FUROSEMIDE 20 MG TABLET PO SCH (08:10)
[2019-05-29] MEDS: AMLODIPINE 10 MG TAB PO SCH (08:12)
[2019-05-29] MEDS: ACETAMINOPHEN 325 MG TABLET PO PRN ×2 (08:14→16:42)
[2019-05-29 13:38] VITALS: BP 113/64
[2019-05-29 14:31] VITALS: BP 152/68
[2019-05-29 19:33] VITALS: BP 121/62
[2019-05-29] MEDS: OMEPRAZOLE 20 MG CAPSULE.DR PO SCH (20:28)
[2019-05-29] MEDS: METOPROLOL SUCCINATE 50 MG TAB.ER.24H PO SCH (20:28)
[2019-05-29] MEDS: SIMVASTATIN 10 MG TABLET PO SCH (20:29)
[2019-05-29] MEDS: TAMSULOSIN 0.4 MG CAP.ER.24H PO SCH (20:29)
[2019-05-29] MEDS: ENOXAPARIN 40 MG/0.4 ML SQ SCH (20:29)
[2019-05-30 00:49] VITALS: BP 153/71
[2019-05-30] MEDS: GUAIFENESIN 200 MG TABLET PO SCH ×4 (05:23→20:06)
[2019-05-30 07:14] VITALS: BP 122/63
[2019-05-30] MEDS: LISINOPRIL 20 MG TABLET PO SCH (08:05)
[2019-05-30] MEDS: FUROSEMIDE 20 MG TABLET PO SCH (08:05)
[2019-05-30] MEDS: ACETAMINOPHEN 325 MG TABLET PO PRN ×2 (08:05→20:05)
[2019-05-30] MEDS: AMLODIPINE 2.5 MG TABLET PO SCH (08:42)
[2019-05-30 12:59] VITALS: BP 132/69
[2019-05-30 18:48] VITALS: BP 138/69
[2019-05-30] MEDS: METOPROLOL SUCCINATE 50 MG TAB.ER.24H PO SCH (20:06)
[2019-05-30] MEDS: TAMSULOSIN 0.4 MG CAP.ER.24H PO SCH (20:06)
[2019-05-30] MEDS: OMEPRAZOLE 20 MG CAPSULE.DR PO SCH (20:06)
[2019-05-30] MEDS: SIMVASTATIN 10 MG TABLET PO SCH (20:06)
[2019-05-30] MEDS: ENOXAPARIN 40 MG/0.4 ML SQ SCH (20:06)
[2019-05-31 01:00] VITALS: BP 128/63
[2019-05-31] MEDS: GUAIFENESIN 200 MG TABLET PO SCH ×4 (06:32→20:42)
[2019-05-31 06:46] VITALS: BP 107/60
[2019-05-31] MEDS: ACETAMINOPHEN 325 MG TABLET PO PRN ×2 (07:09→18:13)
[2019-05-31] MEDS: FUROSEMIDE 20 MG TABLET PO SCH (07:59)
[2019-05-31] MEDS: LISINOPRIL 20 MG TABLET PO SCH (07:59)
[2019-05-31] MEDS: AMLODIPINE 2.5 MG TABLET PO SCH (07:59)
[2019-05-31 14:00] VITALS: BP 124/68
[2019-05-31 18:49] VITALS: BP 138/67
[2019-05-31] MEDS: TAMSULOSIN 0.4 MG CAP.ER.24H PO SCH (20:42)
[2019-05-31] MEDS: ENOXAPARIN 40 MG/0.4 ML SQ SCH (20:43)
[2019-05-31] MEDS: METOPROLOL SUCCINATE 50 MG TAB.ER.24H PO SCH (20:43)
[2019-05-31] MEDS: SIMVASTATIN 10 MG TABLET PO SCH (20:43)
[2019-05-31] MEDS: OMEPRAZOLE 20 MG CAPSULE.DR PO SCH (20:44)
[2019-06-01 01:53] VITALS: BP 108/54
[2019-06-01] MEDS: ACETAMINOPHEN 325 MG TABLET PO PRN ×2 (06:26→19:22)
[2019-06-01] MEDS: GUAIFENESIN 200 MG TABLET PO SCH ×4 (06:26→20:52)
[2019-06-01 07:51] VITALS: BP 120/61
[2019-06-01] MEDS: FUROSEMIDE 20 MG TABLET PO SCH (08:31)
[2019-06-01] MEDS: AMLODIPINE 2.5 MG TABLET PO SCH (08:31)
[2019-06-01] MEDS: LISINOPRIL 20 MG TABLET PO SCH (08:33)
[2019-06-01 13:11] VITALS: BP 84/41
[2019-06-01 13:15] VITALS: BP 105/68
[2019-06-01 19:24] VITALS: BP 158/71
[2019-06-01 20:49] VITALS: BP 152/74
[2019-06-01] MEDS: METOPROLOL SUCCINATE 50 MG TAB.ER.24H PO SCH (20:52)
[2019-06-01] MEDS: SIMVASTATIN 10 MG TABLET PO SCH (20:52)
[2019-06-01] MEDS: TAMSULOSIN 0.4 MG CAP.ER.24H PO SCH (20:52)
[2019-06-01] MEDS: OMEPRAZOLE 20 MG CAPSULE.DR PO SCH (20:52)
[2019-06-01] MEDS: ENOXAPARIN 40 MG/0.4 ML SQ SCH (20:53)
[2019-06-02 01:43] VITALS: BP 111/65
[2019-06-02] MEDS: ACETAMINOPHEN 325 MG TABLET PO PRN (05:42)
[2019-06-02] MEDS: GUAIFENESIN 200 MG TABLET PO SCH ×2 (05:42→11:07)
[2019-06-02 07:27] VITALS: BP 105/67
[2019-06-02] MEDS: AMLODIPINE 2.5 MG TABLET PO SCH (07:55)
[2019-06-02] MEDS: FUROSEMIDE 20 MG TABLET PO SCH (07:55)
[2019-06-02] MEDS: LISINOPRIL 20 MG TABLET PO SCH (07:55)
[2019-06-02] MEDS ORDERED: LISI-170 PO (13:49)
[2019-06-02] MEDS ORDERED: OMEP-110 PO (13:49)
[2019-06-02] MEDS ORDERED: AMLO2.5T5 PO (13:49)
[2019-06-02] MEDS ORDERED: FURO20TA3 PO (13:49)
[2019-06-02 14:12] VITALS: BP 118/66
== END 2019-06-02 17:09 | DRG 291 ==
LOC: ED 14:03 → EDIP 15:30 → 5SO 16:36 → 3N 05-12 15:06
PROVIDERS: ADMIT Internal Medicine; ATTEND Internal Medicine
DX: I11.0 Hypertensive heart disease with heart failure (principal); J96.01 Acute respiratory failure with hypoxia; E87.1 Hypo-osmolality and hyponatremia; I47.2 Ventricular tachycardia; E87.3 Alkalosis; I50.41 Acute combined systolic (congestive) and diastolic (congestive) heart failure; E78.5 Hyperlipidemia, unspecified; R73.9 Hyperglycemia, unspecified; N40.0 Benign prostatic hyperplasia without lower urinary tract symptoms; Z87.891 Personal history of nicotine dependence; Z85.819 Personal history of malignant neoplasm of unspecified site of lip, oral cavity, and pharynx
CPT/HCPCS: 36415; 71045; 80048; 80053; 80069; 82565; 83036; 83735; 83880; 84145; 84439; 84443; 84481; 84484; 85025; 85651; 86140; 93005; 93306; 96374; 96375; G0378; J1644; J1650; J1940; J3475; J3480; J7050